=== PATIENT | female | born 1945 | race Hispanic/Latino ===

== ENCOUNTER → 2017-08-24 | Outpatient (CLI) | payer OTHER | END | disposition home or self-care (01) | LOC: RAH 08:46 | PROVIDERS: ATTEND Internal Medicine Gastroenterology | DX: K76.0 Fatty (change of) liver, not elsewhere classified (principal); R94.5 Abnormal results of liver function studies | CPT/HCPCS: 76700 ==

== ENCOUNTER → 2018-01-06 | Outpatient (CLI) | payer OTHER | END | disposition home or self-care (01) | LOC: OIH 14:45 | PROVIDERS: ATTEND Family Medicine | DX: I10 Essential (primary) hypertension (principal); M47.895 Other spondylosis, thoracolumbar region | CPT/HCPCS: 71046 ==

== ENCOUNTER → 2018-09-08 | Outpatient (CLI) | payer OTHER | END | disposition home or self-care (01) | LOC: OIH 08:39 | PROVIDERS: ATTEND Family Medicine | DX: R91.8 Other nonspecific abnormal finding of lung field (principal); M47.815 Spondylosis without myelopathy or radiculopathy, thoracolumbar region; I70.0 Atherosclerosis of aorta; J84.10 Pulmonary fibrosis, unspecified | CPT/HCPCS: 71046 ==

== ENCOUNTER 2021-12-20 14:31 | Emergency (ER) | payer MEDICARE, OTHER ==
[~2021-12-20] VITALS: Ht 162.6 cm; Wt 60.3 kg
[2021-12-20] MEDS ORDERED: CLINDAMYCIN IVPB 600MG/50ML 50 ML IV SCH (15:00)
[2021-12-20] MEDS ORDERED: ACETAMINOPHEN WITH CODEINE 1 TAB TAB PO ONE (15:00)
[2021-12-20 15:12] LABS: EOSINOPHILS % (AUTO) 3.4 % (0.0-8.0); HEMATOCRIT 41.5 % (36-48); LYMPHOCYTES % (AUTO) 21.3 % (21.0-51.0); MEAN CORPUSCULAR HEMOGLOBIN 32.9 pg (27.0-33.0); MEAN CORPUSCULAR HGB CONC 33.3 g/dL (32.0-36.0); MEAN CORPUSCULAR VOLUME 98.8 fL (79-99); NEUTROPHILS % (AUTO) 67.8 % (40.0-77.0); PLATELET COUNT (AUTO) 132 K/uL (130-400); RED CELL DISTRIBUTION WIDTH 14.6 % (11.0-15.5); WHITE BLOOD COUNT (AUTO) 4.2 K/uL (4.8-10.8)
[2021-12-20 15:15] LABS: BILIRUBIN,URINE Negative (NEGATIVE); GLUCOSE, URINE (UA) Negative (NEGATIVE); KETONES,URINE Negative (NEGATIVE); LEUKOCYTE ESTERASE ,URINE Negative (NEGATIVE); NITRATE,URINE Negative (NEGATIVE); OCCULT BLOOD,URINE Negative (NEGATIVE); PROTEIN,URINE Negative (NEGATIVE)
[2021-12-20 15:29] LABS: APPEARANCE,URINE CLEAR (CLEAR); COLOR,URINE YELLOW (YELLOW)
[2021-12-20] MEDS ORDERED: 0.9%NACL 1000ML 1,000 ML IV SCH (15:30)
[2021-12-20] MEDS ORDERED: IBUPROFEN 800 MG TAB PO ONE (15:30)
[2021-12-20 15:53] LABS: CREATININE 0.9 mg/dL (0.5-1.5); POTASSIUM 4.1 mmol/L (3.5-5.1)
[2021-12-20 15:57] LABS: ALBUMIN 1.9 g/dL (3.5-5.0); BILIRUBIN,TOTAL 2.1 mg/dL (0.2-1.0); TOTAL PROTEIN, SERUM 6.8 g/dL (6.0-8.3)
[2021-12-20 16:09] VITALS: BP 103/54
[2021-12-20] MEDS ORDERED: IBUP-2070 PO (16:25)
[2021-12-20] MEDS ORDERED: CLIN-141 PO (16:25)
== END 2021-12-20 16:47 | disposition home or self-care (01) ==
LOC: EDH 14:31
DX: E86.0 Dehydration (principal); R50.9 Fever, unspecified; B34.9 Viral infection, unspecified; K08.89 Other specified disorders of teeth and supporting structures; K13.79 Other lesions of oral mucosa; Z20.822 Contact with and (suspected) exposure to COVID-19; Z98.890 Other specified postprocedural states
CPT/HCPCS: 36415; 80053; 81003; 83605; 84145; 85025; 87040 ×2; 87635; 87804 ×2; 96365; 99284; C9803; J3490; J7030

== ENCOUNTER 2023-06-15 18:48 | Emergency (ER) | payer MEDICARE ==
[~2023-06-15] VITALS: Ht 167.6 cm; Wt 74.8 kg
[~2023-06-15 18:48] MED LIST: CLIN-141 PO; IBUP-2070 PO
[2023-06-15] MEDS ORDERED: ONDANSETRON 4MG INJ IVP ONE (20:00)
[2023-06-15] MEDS ORDERED: MORPHINE 2 MG SYG IVP ONE (20:00)
[2023-06-15 20:31] LABS: BASOPHILS # (AUTO) 0.03 K/uL (0.00-0.20); BASOPHILS % (AUTO) 0.5 % (0.0-5.0); EOSINOPHILS # (AUTO) 0.51 K/uL (0.00-0.70); EOSINOPHILS % (AUTO) 8.7 % (0.0-8.0); HEMATOCRIT 38.3 % (36-48); IMMATURE GRANULOCYTE ABSOLUTE 0.04 K/uL (0-1); LYMPHOCYTES # (AUTO) 0.9 K/uL (1.0-4.8); LYMPHOCYTES % (AUTO) 15.6 % (21.0-51.0); MEAN CORPUSCULAR HEMOGLOBIN 34.5 pg (27.0-33.0); MEAN CORPUSCULAR HGB CONC 33.2 g/dL (32.0-36.0); MEAN CORPUSCULAR VOLUME 104.1 fL (79-99); MONOCYTES # (AUTO) 1.1 K/uL (0.1-1.0); MONOCYTES % (AUTO) 18.2 % (3.0-13.0); NEUTROPHILS # (AUTO) 3.3 K/uL (1.8-7.7); NEUTROPHILS % (AUTO) 56.3 % (40.0-77.0); PLATELET COUNT (AUTO) 110 K/uL (130-400); RED BLOOD CELL COUNT(AUTO) 3.68 MIL/uL (4.00-5.50); WHITE BLOOD COUNT (AUTO) 5.9 K/uL (4.8-10.8)
[2023-06-15 21:04] LABS: B-TYPE NATRIURETIC PEPTIDE 435 pg/mL (0-100)
[2023-06-15 21:04] LABS: POTASSIUM 3.8 mmol/L (3.5-5.1)
[2023-06-15 21:14] LABS: ALBUMIN 1.5 g/dL (3.5-5.0)
[2023-06-15] MEDS ORDERED: FUROSEMIDE 20MG VIAL IV ONE (22:00)
[2023-06-15] MEDS ORDERED: SPIR50TA5 PO (22:14)
[2023-06-15] MEDS ORDERED: FURO40TA5 PO (22:14)
[2023-06-15] MEDS ORDERED: IBUP-2070 PO (22:16)
[2023-06-15] MEDS ORDERED: PANT20TA18 PO (22:16)
[2023-06-15] MEDS ORDERED: SPIRONOLACTONE 25 MG TAB PO ONE (22:30)
[2023-06-15 22:53] VITALS: BP 128/47; PULSE 76; RESP 16; O2SAT 95
[2023-06-15] MEDS ORDERED: GUAI5LIQ13 PO (23:28)
[2023-06-15 23:50] LABS: SARS-CoV-2, RNA, NAAT NEGATIVE SARS CoV-2 (NEGATIVE)
[2023-06-15 23:53] LABS: INFLUENZA TYPE A Negative For Type A (NEGATIVE); INFLUENZA TYPE B Negative For Type B (NEGATIVE)
[2023-06-21] MEDS ORDERED: MIDO5TAB4 PO (22:01)
[2023-06-21] MEDS ORDERED: LEVO50CA4 PO (22:01)
[2023-06-21] MEDS ORDERED: RIFA550T PO (22:01)
[2023-06-21] MEDS ORDERED: FURO20TA4 PO (22:01)
[2023-06-21] MEDS ORDERED: AMOX1TAB16 PO (22:01)
[2023-06-21] MEDS ORDERED: LACT10SO9 PO (22:01)
== END 2023-06-15 23:36 | disposition home or self-care (01) ==
LOC: EDH 18:48
DX: M25.512 Pain in left shoulder (principal); E87.70 Fluid overload, unspecified; R09.89 Other specified symptoms and signs involving the circulatory and respiratory systems; K74.60 Unspecified cirrhosis of liver; R05.9 Cough, unspecified; E11.9 Type 2 diabetes mellitus without complications; Z79.899 Other long term (current) drug therapy; Z20.822 Contact with and (suspected) exposure to COVID-19
CPT/HCPCS: 99284; 96374; 71045; 96375; 87635; 80053; 83880; 85025; 87804 ×2; 36415; 73030; J2270; J2405; J1940